=== PATIENT | male | born 1970 | race African-American/Black ===

== ENCOUNTER 2022-08-13 11:55 | Emergency (ER) | payer MEDICAID ==
[~2022-08-13] VITALS: Ht 177.8 cm; Wt 95.0 kg
[2022-08-13 12:29] VITALS: BP 102/71
[2022-08-13] MEDS ORDERED: IBUPROFEN 600MG TABLET PO STA (15:13)
[2022-08-13] MEDS ORDERED: AMOX1TAB16 MT (16:10)
[2022-08-13 16:20] LABS: CLARITY URINE CLOUDY (CLEAR); COLOR URINE ORANGE (YELLOW); KETONES URINE NEGATIVE (NEGATIVE); LEUKOCYTE ESTERASE URINE 1+ (NEGATIVE); NITRITE URINE POSITIVE (NEGATIVE); OCCULT BLOOD URINE NEGATIVE (NEGATIVE); PROTEIN URINE 2+ (NEGATIVE)
== END 2022-08-13 16:50 | disposition home or self-care (01) ==
LOC: ER 11:55
DX: J18.9 Pneumonia, unspecified organism (principal); N30.00 Acute cystitis without hematuria; G43.909 Migraine, unspecified, not intractable, without status migrainosus; Z87.828 Personal history of other (healed) physical injury and trauma; Z98.890 Other specified postprocedural states
CPT/HCPCS: 71045; 81003; 99284

== ENCOUNTER 2025-01-02 10:16 | Emergency (ER) | payer OTHER, MEDICAID ==
[~2025-01-02] VITALS: Ht 182.9 cm; Wt 91.0 kg
[~2025-01-02 10:16] MED LIST: AMOX1TAB16 MT
[2025-01-02 10:20] VITALS: O2SAT 100
[2025-01-02] MEDS: KETOROLAC 30MG/ML VIAL IM ONE (11:51)
[2025-01-02] MEDS ORDERED: IBUP-2029 MT (12:45)
[2025-01-02 13:00] VITALS: BP 134/90; PULSE 72; RESP 14; TEMP 36.7; O2SAT 99
== END 2025-01-02 13:06 ==
LOC: ER 10:16
DX: S22.41XA Multiple fractures of ribs, right side, initial encounter for closed fracture (principal); G43.909 Migraine, unspecified, not intractable, without status migrainosus; Z79.899 Other long term (current) drug therapy; W19.XXXA Unspecified fall, initial encounter; Y93.89 Activity, other specified; Y92.89 Other specified places as the place of occurrence of the external cause; Y99.8 Other external cause status
CPT/HCPCS: 99285; 70450; 71101; 71250; 74176; 96372; J1885